=== PATIENT | female | born 1995 | race Caucasian/White ===

== ENCOUNTER 2019-02-07 13:58 | Emergency (ER) | payer SELFPAY ==
[2019-02-07 14:52] LABS: #Eosinphils 0.1 thou/uL (0.0-0.7); #Lymphocytes 1.9 thou/uL (1.20-3.40); #Monocytes 0.7 thou/uL (0.11-0.59); #Neutrophils 9.2 thou/uL (1.40-6.50); %Basophils 0.2 % (0.0-1.0); %Eosinophils 0.5 % (0.0-10.0); %Monocytes 5.7 % (0.0-10.0); %Neutrophils 77.5 % (42.0-75.0); Hemoglobin 13.3 g/dL (12.0-16.0); Mean Corpuscular HGB CONC 33.8 g/dL (32.0-36.0); Mean Corpuscular Volume 91.6 fL (78.0-98.0); Mean Platelet Volume 7.5 fL (7.4-10.4); Platelet Count 200 thou/uL (130-400); RBC Distribution Width 12.3 % (11.5-14.5); Red Blood Cell (RBC) Count 4.29 mill/uL (4.20-5.40); White Blood Cell (WBC) Count 11.9 thou/uL (4.8-10.8)
--- NOTE | 2019-02-07 15:16 | ULT ---
ULTRASOUND PELVIS TRANSVAGINAL WITH DOPPLER: 02/07/19 HISTORY: Pelvic bleeding. COMPARISON: None. FINDINGS: Single viable intrauterine with average ultrasound age of 14 week, 5 day with estimated jose e of delivery 08/03/2019. BIOMETRY: Biparietal diameter 2.68 cm 14 week, 5 day Head circumference 10.84 cm 15 week, 1 day Abdominal circumference 8.39 cm 14 week, 5 day Femur length 1.43 cm 14 week, 2 day Amniotic fluid index: Low at 6.7 cm. heart rate documented at 155 beats per minute. The placenta is posterior and covers the interna l os with a placental isabel near the os. Due to the shadowing from the placenta, the cervix is not well delineated. IMPRESSION: 1. Single viable intrauterine with average ultrasound age 14 week, 5 day with estimate d delivery of 08/03/2019. 2. Low amniotic fluid index of 6.7 cm. 3. The caudal margin of the placenta does cover the internal os. Close follow-up recommended. POS: HOME
== END 2019-02-07 17:41 | disposition home or self-care (01) ==
LOC: ERS 13:58
DX: O20.0 Threatened abortion (principal); O23.591 Infection of other part of genital tract in pregnancy, first trimester; B96.89 Other specified bacterial agents as the cause of diseases classified elsewhere; Z3A.13 13 weeks gestation of pregnancy
CPT/HCPCS: 36415; 76856; 84702; 85025; 86900; 86901; 87480; 87491; 87510; 87591; 87660

== ENCOUNTER 2019-06-10 18:45 | Emergency (ER) | payer MEDICAID, OTHER | END 2019-06-10 20:03 | disposition home or self-care (01) | LOC: ERS 18:45 | DX: B34.9 Viral infection, unspecified (principal) | CPT/HCPCS: 87081; 87430; 87804; 99283 ==